=== PATIENT | male | born 1995 | race Caucasian/White ===

== ENCOUNTER 2022-05-26 09:49 | Emergency (ER) | payer SELFPAY ==
[2022-05-26 09:56] VITALS: BP 129/93; PULSE 89; RESP 16; TEMP 99; BMI 29.8
[2022-05-26] MEDS ORDERED: KETOROLAC TROMETHAMINE 15 MG/ML VIAL IM ONE (10:27)
== END 2022-05-26 10:54 | disposition home or self-care (01) ==
LOC: JERFT 09:49
PROC: 3E0233Z Introduction of Anti-inflammatory into Muscle, Percutaneous Approach (ICD-10-PCS; principal; 2022-05-26)
DX: M25.461 Effusion, right knee (principal)
CPT/HCPCS: 73562-TC-RT-FY; 99284-25